=== PATIENT | female | born 1960 | race Caucasian/White ===

== ENCOUNTER → 2017-05-28 | Day surgery (SDC) | payer OTHER ==
--- NOTE | 2017-05-27 09:31 | TH ---
cc: KEIRA SALDIVAR M.D. DATE 05/27/2017 DATE OF 1960 PROCEDURE TO BE PERFORMED Removal of implants and mastopexy. HISTORY OF PRESENT ILLNESS This is a patient who is a pleasant 56-year female who had initial deflation of the implant and eventually wishes to have both breast implants removed and do a mastopexy. The patient is a healthy individual. She did have a right knee arthroscopy last year, a of low thyroid for which she takes levothyroxine. She also takes Xeljanz, MBi calcium and Estradiol patch. ALLERGIES PENICILLIN AND SULFA HABITS Benign REVIEW OF SYSTEMS Otherwise unremarkable. PHYSICAL EXAM CONSTITUTIONAL: General appearance. The patient is a well-developed female in no acute distress. Body habitus is within normal limits. There appear to be no deformities. Appears to have attention to grooming. HEENT: Eyes Conjunctivae and lids are within normal anatomical limits. The pupils are reactive to light and accommodation, size, and symmetry. There is no evidence of exudate, hemorrhage, or vessel change. Ears, mouth, nose, and throat The external inspection of the ears and nose fails to demonstrate any pathology, scars, lesions, or masses. Nasal mucosa, septum, and turbinates appear to be well hydrated as well as the lips and gums. No evidence of masses in the hypopharynx or submental area. RESPIRATORY: The patient shows no evidence of intercostal refractions. Otherwise, lungs are clear to auscultation without any abnormal sounds or rubs. CARDIOVASCULAR: The patient has a normal heart rate and rhythm. There is no evidence of noticed carotid bruits. Femoral pulses and pedal pulses in extremities are also within normal limits. GASTROINTESTINAL/ABDOMEN: Soft with no evidence of masses or tenderness. Unable to palpate the liver or spleen. No evidence of hernia. MUSCULOSKELETAL: Appears to be reasonable range of motion on the head, neck, spine, ribs, pelvis, right upper extremity, left upper extremity, right lower extremity, and left lower extremity. The muscle strength and tone appears to be equal and within accepted limits. SKIN: There is no rashes, lesions, or ulcers on the trunk, back, and extremities. NEUROLOGICAL: Examination is grossly normal. PSYCHIATRIC: The patient appears to have good orientation of time, place, and person. Does not appear to have any mood effects of depression, anxiety, or agitation. ASSESSMENT The patient does ptotic breasts, symmetrical, healthy otherwise. PLAN Proceed with this, bilateral removal of the implants, bilateral implants and mastopexy. MD FIDELINA Alfredo/EDUARD /9:15 AM /9:21 AM
[~2017-05-28] MED LIST: ACETAMINOPHEN 1000 MG/100 ML 100 ML IV ONE; APREPITANT 40 MG CAP ONE; BACITRACIN IM FOR SOLN 50,000 UNIT VIAL ONE; GENTAMICIN SULFATE 80 MG/2 ML VIAL ONE; LACTATED RINGER'S 1000 ML INJ 1,000 ML ONE; MEPERIDINE HCL 50 MG/ML VIAL ONE; MIDAZOLAM HCL 2 MG/2 ML VIAL ONE; ONDANSETRON HCL 4 MG/2 ML VIAL IV PUSH ONE; PROPOFOL 200 MG/20 ML AMP IV ONE; SODIUM CHLORIDE 0.9% 250 ML ADDBAG IV ONE; SODIUM CHLORIDE 0.9% INJ 10 ML ONE; VANCOMYCIN 500 MG VIAL ONE
--- NOTE | 2017-05-28 14:03 | TN ---
cc: ROYCE GRADY M.D. DATE OF SURGERY: 05/28/2017 PREOPERATIVE DIAGNOSIS Deflation of breast implants saline and ptosis. PROCEDURE PERFORMED Removal of deflated saline breast implants and circumvertical mastopexy. SURGEON Royce Grady MD FACS ANESTHESIA LMA general plus total of 30 ccs of 1% lidocaine with epinephrine. ESTIMATED BLOOD LOSS Minimal. COMPLICATIONS None. PROCEDURE She was properly consented, marked and anesthetized. The skin was sterilized with Betadine solution. Local breast block was applied. The measure was as follows: The NAC was set at 19 cm from the sternal notch, 42 mm areolar diameter. Isolating the NAC from the beginning, utilizing a vertical infra-areolar incision the pocket was encountered, the implant was removed without any difficulties. Lateral inferior capsulorrhaphies were done with a running locking 0-Silk in order to approximate the axillary line and enhance the inframammary fold. Utilizing the tailor tack technique we applied the surgical gillian. We assessed the excess of envelope that the patient had at this point. Those were properly marked. The gillian were removed. The skin was de-epithelialized and the wound was closed as following: multiple 2-0 Monocryl suture layers, the pocket, dermis and subcu, the NAC was brought in near anatomical position utilizing 2-0 PTFE suture in a pinwheel type technique and I reinforced with a 2-0 Quill. Prineo Dermabond was applied thereafter. Overall, the patient tolerated the procedure well. Good viability of tissue was noted at the end of the case. The patient was awakened and extubated in the operating room and transferred back to postanesthesia care unit in stable condition. No complications were appreciated and the patient tolerated the procedure fairly well. MD FIDELINA Alfredo/HARPREET /1:36 PM /1:44 PM
== END | disposition home or self-care (01) ==
LOC: ESDC 10:06
PROVIDERS: ATTEND Plastic Surgery
DX: Z41.1 Encounter for cosmetic surgery (principal)
CPT/HCPCS: 00402; 19316; 19330; J0131; J1580; J2175; J2250; J2405; J3010; J3370; J7120; J8501